=== PATIENT | female | born 1990 | race African-American/Black ===

== ENCOUNTER → 2024-12-24 | Outpatient (CLI) | payer OTHER ==
--- NOTE | 2024-12-24 12:05 | US ---
EXAMINATION TYPE: US abdomen complete DATE OF EXAM: 12/24/2024 COMPARISON: NONE CLINICAL INDICATION: Female, 34 years old with history of R10.2 PELVIC AND PERINEAL PAIN R10.84 GENER ALIZED; TECHNIQUE: Grayscale and color Doppler imaging of the abdomen was performed. FINDINGS: EXAM MEASUREMENTS: Liver Length: 13.5cm Gallbladder Wall: 0.2cm CBD: 0.5cm color Doppler imaging was utilized to isolate the common bile duct for measurement. 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 Remainder is obscured by bowel gas shadowi ng. Liver: Visualized portions show a homogeneous appearance. No focal lesion seen. Gallbladder: Possible 3 mm shadowing focus near the neck of the gallbladder. No abnormal gallbladder distention, wall thickening, or surrounding fluid. Evidence for sonographic Meyers's sign: No CBD: wnl Spleen: wnl Right Kidney: wnl, No hydronephrosis, calculi or masses seen Left Kidney: wnl, No hydronephrosis, calculi or masses seen Upper IVC: wnl as best seen Abd Aorta: prox: slightly obscured, wnl as best visualized mid/distally IMPRESSION: 1. Limited assessment as above. 2. Possible 3 mm gallstone. No ancillary imaging findings of acute cholecystitis. 3. No biliary ductal dilatation. [facility], , 12/24/2024 12:03 PM
--- NOTE | 2024-12-24 12:07 | US ---
EXAMINATION TYPE: US pelvic complete DATE OF EXAM: 12/24/2024 COMPARISON: NONE CLINICAL INDICATION: Female, 34 years old with history of R10.2 PELVIC AND PERINEAL PAIN R10.84 GENER ALIZED; TECHNIQUE: Transabdominal (TA). Transabdominal grayscale sonographic images of the pelvis were acquired. Transvaginal sonographic im ages were medically necessary to better assess the following anatomy: Doppler imaging: Color Doppler Images were obtained. FINDINGS: EXAM MEASUREMENTS: Uterus: 9.0x4.3x4.6cm Endometrial Stripe: 0.8cm Right Ovary: 5.0x2.9x2.5cm for a volume of 18.5 mL Left Ovary: 2.3x1.7x1.9cm Field Sales Agent notes: slightly limited views due to overlying bowel/gas 1. Uterus: Anteverted but retroflexed. Otherwise, wnl 2. Endometrium: wnl 3. Right Ovary: There is a cyst measuring 4.4x1.8x2.5cm 4. Left Ovary: wnl as best seen 5. Bilateral Adnexa: wnl 6. Posterior cul-de-sac: wnl IMPRESSION: 1. A 4.4 cm suspected dominant follicle or functional cyst of the right ovary. Consider follow-up in 6-8 weeks to ensure involution. 2. Otherwise, no specific abnormality seen. [facility], , 12/24/2024 12:05 PM
== END | disposition home or self-care (01) ==
LOC: RADUSWWP 07:43
PROVIDERS: ATTEND Family Medicine
DX: R10.2 Pelvic and perineal pain (principal); R10.84 Generalized abdominal pain; R14.0 Abdominal distension (gaseous)
CPT/HCPCS: 76700; 76856

== ENCOUNTER → 2024-12-25 | Outpatient (CLI) | payer OTHER ==
--- NOTE | 2024-12-25 13:25 | FL ---
EXAMINATION TYPE: FL UGI DATE OF EXAM: 12/25/2024 9:37 AM COMPARISON: 12/24/2024 CLINICAL INDICATION:Female, 34 years old with history of R10.2 PELVIC AND PERINEAL PAIN R10.84 GENERA LIZED; TECHNIQUE: The procedure was explained and patient history elicited. All patient questions were ans wered prior to start of procedure. A putty and patch worker radiograph of the abdomen was also reviewed. Multiple flu oroscopic spot images of the esophagus, stomach and duodenum were obtained following ingestion of liq uid barium and EZ-gas crystals. DAP: Not reported [id number] FINDINGS: Upper GI examination: The putty and patch worker abdominal radiograph demonstrates a normal bowel gas pattern without dilated loops of small or large bowel. There is no evidence for organomegaly or pneumoperitoneum. No abnormal calcification s. The visualized osseous structures are intact. The esophagus demonstrates normal primary and secondary peristalsis. Few scattered tertiary contracti ons are seen with delayed emptying of the esophageal contents. The esophageal mucosa is smooth withou t evidence of focal stricture, ulceration, or abnormal outpouching. No gastroesophageal reflux diseas e was identified. The stomach and duodenum demonstrate a normal course and contour. There is no evidence of focal jerry ermelinda or duodenal ulceration, stricture, or abnormal outpouching. IMPRESSION: Mild Esophageal dysmotility. [facility], , 12/25/2024 1:23 PM
== END | disposition home or self-care (01) ==
LOC: RADFLMAIN 08:41
PROVIDERS: ATTEND Family Medicine
DX: K22.4 Dyskinesia of esophagus (principal); R10.2 Pelvic and perineal pain
CPT/HCPCS: 74240